=== PATIENT | female | born 1995 | race Caucasian/White ===

== ENCOUNTER 2018-08-15 13:36 | Outpatient (CLI) | payer OTHER ==
[~2018-08-15] VITALS: Ht 165.1 cm; Wt 72.3 kg
[2018-08-15 13:32] VITALS: BP 107/67
[2018-08-15 15:11] LABS: MICROSCOPIC AUTO
[2018-08-15] MEDS ORDERED: NITR100C56 PO (16:06)
== END 2018-08-15 16:30 | disposition home or self-care (01) ==
LOC: LDOP 13:36
PROVIDERS: ATTEND Obstetrics & Gynecology
DX: O26.893 Other specified pregnancy related conditions, third trimester (principal); Z3A.33 33 weeks gestation of pregnancy
CPT/HCPCS: 59025; 81001; 87086; 99201; G0463

== ENCOUNTER 2018-09-27 14:42 | Outpatient (CLI) | payer OTHER ==
[~2018-09-27] VITALS: Ht 165.1 cm; Wt 76.0 kg
== END 2018-09-27 16:00 | disposition home or self-care (01) ==
LOC: LDOP 14:42
PROVIDERS: ATTEND Obstetrics & Gynecology
DX: O42.92 Full-term premature rupture of membranes, unspecified as to length of time between rupture and onset of labor (principal); O48.0 Post-term pregnancy; Z3A.40 40 weeks gestation of pregnancy; Z88.1 Allergy status to other antibiotic agents
CPT/HCPCS: 59025; 89060; 99211; G0463; Q0114

== ENCOUNTER 2018-10-02 12:51 | Outpatient (CLI) | payer OTHER ==
[~2018-10-02] VITALS: Ht 165.1 cm; Wt 76.4 kg
[~2018-10-02 12:51] MED LIST: NITR100C56 PO
[2018-10-02 13:02] VITALS: BP 115/74
[2018-10-02 14:06] LABS: MICROSCOPIC INDICATED
== END 2018-10-02 15:09 | disposition home or self-care (01) ==
LOC: LDOP 12:51
PROVIDERS: ATTEND Obstetrics & Gynecology
DX: O26.893 Other specified pregnancy related conditions, third trimester (principal); Z3A.40 40 weeks gestation of pregnancy
CPT/HCPCS: 59025; 81001; 87086; 99211; G0463

== ENCOUNTER 2018-10-02 18:46 | Inpatient (IN) | payer OTHER ==
[~2018-10-02] VITALS: Ht 165.1 cm; Wt 65.0 kg
[2018-10-02] MEDS ORDERED: OXYTOCIN 30U/ 0.9% NaCL 500ML 500 ML IV PRN (19:27)
[2018-10-02] MEDS ORDERED: FENTANYL/BUPIV./NS/PF 250 ML EPIDCONT SCH (19:27)
[2018-10-02] MEDS ORDERED: OXYTOCIN 30U/ 0.9% NaCL 500ML 500 ML IV ONE (19:27)
[2018-10-02] MEDS ORDERED: FENTANYL PF 100 MCG/2ML IVPush PRN (19:30)
[2018-10-02] MEDS ORDERED: EPHEDRINE 50 MG/ML, 1ML IVPush PRN ×2 (19:30→21:00)
[2018-10-02] MEDS ORDERED: LACTATED RINGERS 1,000 ML IVBOLUS PRN ×2 (19:30→21:00)
[2018-10-02] MEDS ORDERED: FENTANYL PF 100 MCG/2ML IV PRN (19:30)
[2018-10-02] MEDS ORDERED: TERBUTALINE 1 MG/ML, 1ML IVPush PRN (19:30)
[2018-10-02] MEDS ORDERED: SODIUM CITRATE/CITRIC ACID 15 ML UDC PO PRN (19:30)
[2018-10-02] MEDS ORDERED: METOCLOPRAMIDE 5 MG/ML, 2ML IVPush PRN (19:30)
[2018-10-02] MEDS ORDERED: FENTANYL PF 100 MCG/2ML ONE (19:35)
[2018-10-02] MEDS ORDERED: NEWBORN KIT ONE (19:49)
[2018-10-02 19:57] LABS: BASOPHILS # (AUTO) 0.04 x10^3/uL (0-0.1); BASOPHILS % (AUTO) 0 % (0-1); EOSINOPHILS # (AUTO) 0.01 x10^3/uL (0-0.4); EOSINOPHILS % (AUTO) 0 % (1-7); LYMPHOCYTES # (AUTO) 1.37 x10^3/uL (1-3.4); LYMPHOCYTES % (AUTO) 10 % (22-44); MD NO; MEAN CORPUSCULAR HEMOGLOBIN 29.1 pg (27.0-34.8); MEAN CORPUSCULAR HGB CONC 32.6 g/dL (32.4-35.8); MEAN CORPUSCULAR VOLUME 89.3 fL (80-100); MEAN PLATELET VOLUME 8.5 fL (7.4-10.4); MONOCYTES # (AUTO) 0.65 x10^3/uL (0.2-0.8); MONOCYTES % (AUTO) 5 % (2-9); NEUTROPHILS # (AUTO) 11.09 x10^3/uL (1.8-6.8); NEUTROPHILS % (AUTO) 84 % (42-75); PLATELET COUNT 258 x10^3/uL (130-400); RED BLOOD COUNT 4.92 x10^6/uL (3.82-5.3); RED CELL DISTRIBUTION WIDTH 14.2 % (9.6-15.2)
[2018-10-02] MEDS ORDERED: FENTANYL PF 500 MCG, BUPIVACAINE/PF 0.5%, 30ML 62.5 ML in SODIUM CHLORIDE 0.9% 177.5 ML EPIDCONT SCH (20:00)
[2018-10-02] MEDS: LACTATED RINGERS 1,000 ML IV SCH ×2 (20:03→20:48)
[2018-10-02] MEDS ORDERED: BUPIVACAINE 0.25% ONE (20:12)
[2018-10-02] MEDS ORDERED: FENTANYL/BUPIV./NS/PF 250 ML EPIDCONT ONE (20:15)
[2018-10-02] MEDS ORDERED: LIDOCAINE/PF 1.5%-EPI 1:200K, 30ML ONE (20:15)
[2018-10-02] MEDS ORDERED: OXYTOCIN 30U/ 0.9% NaCL 500ML 500 ML ONE (21:33)
[2018-10-02 22:06] VITALS: BP 117/80
[2018-10-03] MEDS: LACTATED RINGERS 1,000 ML IV SCH ×10 (01:06→19:44)
[2018-10-03] MEDS ORDERED: DIPH,PERTUSS(ACELL),TET VAC/PF NC IM-VACC PRN (02:00)
[2018-10-03] MEDS ORDERED: MISOPROSTOL 200 MCG TABLET PR PRN (02:00)
[2018-10-03] MEDS ORDERED: CALCIUM CARBONATE 500 MG TAB.CHEW PO PRN (02:00)
[2018-10-03] MEDS ORDERED: MAGNESIUM HYDROXIDE 8%, 30ML UDC PO PRN (02:00)
[2018-10-03] MEDS ORDERED: MEASLES,MUMPS&RUBELLA VACC/PF 0.5 ML SQ PRN (02:00)
[2018-10-03] MEDS ORDERED: ONDANSETRON 2MG/ML, 2ML IV PRN (02:00)
[2018-10-03] MEDS ORDERED: RHOGAM FROM BLOOD BANK 1 NOTE EA IM/IV ONE (02:00)
[2018-10-03] MEDS ORDERED: ACETAMINOPHEN 325 MG TABLET PO PRN ×2 (02:00)
[2018-10-03] MEDS ORDERED: OXYcodone/APAP 5/325MG TABLET PO PRN ×2 (02:00)
[2018-10-03] MEDS ORDERED: OXYTOCIN 30U/ 0.9% NaCL 500ML 500 ML ONE (02:33)
[2018-10-03 05:30] VITALS: BP 109/69
[2018-10-03 08:00] VITALS: BP 103/68
[2018-10-03] MEDS ORDERED: PRENATAL VIT/IRON/FA 1 EACH TABLET PO SCH (09:00)
[2018-10-03] MEDS: DOCUSATE 100 MG CAPSULE PO PRN (09:08)
[2018-10-03 11:00] LABS: BASOPHILS % (AUTO) 0 % (0-1); EOSINOPHILS # (AUTO) 0.03 x10^3/uL (0-0.4); EOSINOPHILS % (AUTO) 0 % (1-7); LYMPHOCYTES # (AUTO) 1.06 x10^3/uL (1-3.4); LYMPHOCYTES % (AUTO) 9 % (22-44); MD NO; MEAN CORPUSCULAR HEMOGLOBIN 28.6 pg (27.0-34.8); MEAN CORPUSCULAR HGB CONC 32.4 g/dL (32.4-35.8); MEAN CORPUSCULAR VOLUME 88.4 fL (80-100); MEAN PLATELET VOLUME 8.1 fL (7.4-10.4); MONOCYTES # (AUTO) 0.81 x10^3/uL (0.2-0.8); MONOCYTES % (AUTO) 7 % (2-9); NEUTROPHILS # (AUTO) 10.14 x10^3/uL (1.8-6.8); NEUTROPHILS % (AUTO) 84 % (42-75); PLATELET COUNT 221 x10^3/uL (130-400); RED BLOOD COUNT 4.25 x10^6/uL (3.82-5.3); RED CELL DISTRIBUTION WIDTH 14.3 % (9.6-15.2)
[2018-10-03 12:30] VITALS: BP 116/80
[2018-10-03] MEDS: IBUPROFEN 600 MG TABLET PO PRN ×2 (15:00→20:55)
[2018-10-03] MEDS: PLEASE ENTER HEIGHT AND WEIGHT MC SCH ×3 (19:40→19:45)
[2018-10-03] MEDS: FENTANYL/BUPIV./NS/PF 250 ML EPIDCONT SCH ×2 (19:40→19:43)
[2018-10-03] MEDS: OXYTOCIN 30U/ 0.9% NaCL 500ML 500 ML IV SCH ×3 (19:41→19:45)
[2018-10-03 20:56] VITALS: BP 105/72
[2018-10-04] MEDS: LACTATED RINGERS 1,000 ML IV SCH ×3 (02:55→02:56)
[2018-10-04 07:58] VITALS: BP 114/77
[2018-10-04] MEDS ORDERED: IBUP-1222 PO (09:49)
[2018-10-04] MEDS ORDERED: DOCU-131 PO (09:50)
[2018-10-04] MEDS: IBUPROFEN 600 MG TABLET PO PRN (11:05)
[2018-10-04] MEDS: DOCUSATE 100 MG CAPSULE PO PRN (11:05)
== END 2018-10-04 11:55 | disposition home or self-care (01) | DRG 807 ==
LOC: LDOP 18:46 → LDIP 19:25 → 2NW 10-03 05:00
PROVIDERS: ADMIT Obstetrics & Gynecology; ATTEND Obstetrics & Gynecology
PROC: 10E0XZZ Delivery of Products of Conception, External Approach (ICD-10-PCS; principal; 2018-10-03)
PROC: 0HQ9XZZ Repair Perineum Skin, External Approach (ICD-10-PCS; 2018-10-03)
PROC: 10907ZC Drainage of Amniotic Fluid, Therapeutic from Products of Conception, Via Natural or Artificial Opening (ICD-10-PCS; 2018-10-03)
PROC: 3E0R3BZ Introduction of Anesthetic Agent into Spinal Canal, Percutaneous Approach (ICD-10-PCS; 2018-10-03)
PROC: 00HU33Z Insertion of Infusion Device into Spinal Canal, Percutaneous Approach (ICD-10-PCS; 2018-10-03)
DX: O70.0 First degree perineal laceration during delivery (principal); Z37.0 Single live birth; Z3A.40 40 weeks gestation of pregnancy
CPT/HCPCS: 36415; J3490; 85025; 86850; 86870; 86900; 86902; 86922; 86923; G0378; J3010; J2590; J7120